=== PATIENT | male | born 1980 | race Caucasian/White ===

== ENCOUNTER → 2023-02-15 08:50 | Outpatient (CLI) | payer MEDICARE, MEDICAID, SELFPAY ==
[2023-02-15 15:00] LABS: Alanine Aminotransferase 31 U/L (12-78); Albumin Level 4.4 g/dl (3.5-5.0); Albumin/Globulin Ratio 1.5 (1.1-1.8); Alkaline Phosphatase 162 U/L (38-126); Anion Gap 15.9 mEq/L (5-15); Aspartate Amino Transferase 37 U/L (17-59); Basophils % 0.2 % (0.1-2.0); Blood Urea Nitrogen 9 mg/dl (9-20); Calcium 8.8 mg/dl (8.4-10.2); Carbon Dioxide 30 mmol/L (22.0-30.0); Chloride 99 mmol/L (98-107); Chol/HDL Ratio 4.8 (1-3.5); Cholesterol 135 mg/dl (140-200); Eosinophils % 0.9 % (0.1-12.0); Estimated Glomerular Filt Rate 148 ml/min (>60); GFR (African American) 179 ML/MIN (>60); Glucose 82 mg/dl (74-100); HDL Cholesterol 28 mg/dl (40-60); Hematocrit 43.7 % (42.0-52.0); Hemoglobin 14.8 g/dL (14.1-18.0); Lymphocytes # 1.1 K/mm3 (0.7-4.5); Mean Corpuscular HGB Conc 33.8 g/dL (31.8-35.4); Mean Corpuscular Hemoglobin 31.7 pg (27.0-31.2); Mean Corpuscular Volume 93.8 fl (80-94); Mean Platelet Volume 11.3 fl (7.4-10.4); Monocytes # 0.2 K/mm3 (0.1-1.0); Monocytes % 5.6 % (1.7-9.3); Neutrophils # 2.7 K/mm3 (1.8-7.8); Neutrophils % 65.4 % (37.0-80.0); Platelet Count 142 K/mm3 (142-424); Potassium 3.9 mmoL/L (3.5-5.1); Red Blood Count 4.66 M/mm3 (4.60-6.20); Sodium 141 mmol/L (136-145); Total Protein,Serum 7.4 g/dl (6.3-8.2); Triglycerides 141 mg/dl (30-150); VLDL Cholesterol 28 mg/dL (0-40); White Blood Count 4.1 K/mm3 (4.8-10.8)
[2023-02-15 15:11] LABS: Direct LDL Cholesterol 80.37 mg/dL (100-129)
[2023-02-15 15:13] LABS: 25-OH Vitamin D, Total 22.1 ng/mL (30-100)
[2023-02-15 15:15] LABS: T4 (Thyroxine) 8.3 ug/dl (5.53-11.0)
[2023-02-15 15:29] LABS: Thyroid Stimulating Hormone 3.27 uIU/mL (0.465-4.68)
== END ==
PROVIDERS: PCP Emergency Medicine; Visit Provider Emergency Medicine
DX: H51.8 Other specified disorders of binocular movement (principal); E78.5 Hyperlipidemia, unspecified; R53.83 Other fatigue; E55.9 Vitamin D deficiency, unspecified
CPT/HCPCS: 80053; 80061; 82306; 84436; 84443; 85025